=== PATIENT | female | born 1980 | race Caucasian/White ===

== ENCOUNTER 2017-01-18 14:59 | Emergency (ER) | payer MEDICAID ==
--- NOTE | 2017-01-18 15:19 | EDPHY ---
H & P Time Seen by Provider: 01/18/17 15:18 HPI/ROS: CHIEF COMPLAINT: Referred to ED from [facility] for reported hypertension, confusion HISTORY OF PRESENT ILLNESS: The patient reportedly was at [facility] earlier today. She has a history of chronic substance abuse and is on methadone. She reportedly was noted to be hypertensive, endorses symptoms of anxiety and has reported some increasing confusion over the past several days. She denies any suicidal or homicidal ideation. She denies using any illicit substances aside and has been receiving her methadone on a daily basis. The patient is on a number of other medications including Ambien. The patient typically gets her care at [facility]. She does have fairly routine follow up with her primary care provider. REVIEW OF SYSTEMS: A comprehensive 10 point review of systems is otherwise negative aside from elements mentioned in the history of present illness. Source: Patient Exam Limitations: No limitations - Medical/Surgical History PMH: Past medical history: Chronic pain, substance abuse - Family History Significant Family History: No pertinent family hx - Physical Exam Exam: General Appearance: Alert, anxious, no acute distress Eyes: Pupils equal and round no pallor or injection ENT, Mouth: Mucous membranes moist Respiratory: There are no retractions, lungs are clear to auscultation Cardiovascular: Regular rate and rhythm Gastrointestinal: Abdomen is soft and nontender, no masses, bowel sounds normal Neurological: A&O, normal motor function, normal sensory exam, normal cranial nerves Skin: Warm and dry, no rashes Musculoskeletal: Neck is supple nontender Extremities: symmetrical, full range of motion Psychiatric: Patient is oriented X 3, there is no agitation, mildly anxious, denies suicidal/homicidal ideation Constitutional: Initial Vital Signs Temperature (C) 36.8 C 01/18/17 15:43 Heart Rate 63 01/18/17 15:43 Respiratory Rate 16 01/18/17 15:43 Blood Pressure 165/116 H 01/18/17 15:43 O2 Sat (%) 92 01/18/17 15:43 O2 Delivery Mode Room Air Allergies/Adverse Reactions: No Known Allergies Allergy (Verified 01/18/17 15:46) Home Medications: Medication Instructions Recorded Depakote 06/13/09 Levothyroxine 06/13/09 Prozac 06/13/09 Ativan 01/18/17 Dicyclomine 01/18/17 Methadone HCl 01/18/17 Tizanidine HCl 01/18/17 Zolpidem Tartrate 01/18/17 clonIDINE 01/18/17 Medical Decision Making ED Course/Re-evaluation: The patient presents to the ED with symptoms of anxiety. The patient denies any suicidal or homicidal ideation. The patient has reported some mild symptoms of confusion. The patient's vital signs are stable. She is afebrile. She has no evidence of meningeal symptoms. The patient's laboratory studies are unremarkable. The patient did receive 1 mg of IV Ativan for presumed anxiety. She underwent serial examinations in the ED over a 3 hour period. The patient was re-evaluated at 7:00 p.m.. She is feeling much better. She has no acute complaints. Her neurologic exam remains normal and her vital signs are normal as well. The patient would like to be discharged back to the respite facility at [facility]. She does not meet criteria for 72 hour mental health hold. The patient did have mild hypertension upon arrival. At 645pm the patient's blood pressure is 140/83. Differential Diagnosis: Differential diagnosis considered includes hypertensive emergency, metabolic abnormality, anxiety, psychosis, substance abuse - Data Points Laboratory Results: Laboratory Results 01/18/17 15:00 01/18/17 15:00 01/18/17 01/18/17 01/18/17 15:25 15:25 15:00 WBC RBC Hgb Hct MCV MCH MCHC RDW Plt Count MPV Neut % (Auto) Lymph % (Auto) [place] % (Auto) Eos % (Auto) Baso % (Auto) Nucleat RBC Rel Count Absolute Neuts (auto) Absolute Lymphs (auto) Absolute Monos (auto) Absolute Eos (auto) Absolute Basos (auto) Absolute Nucleated RBC Immature Gran % Immature Gran # Sodium Potassium Chloride Carbon Dioxide Anion Gap BUN Creatinine Estimated GFR Glucose Calcium Beta HCG, Qual NEGATIVE Urine Color YELLOW Urine Appearance CLEAR Urine pH 7.0 (5.0-7.5) Ur Specific [place] 1.005 (1.002-1.030) Urine Protein NEGATIVE (NEGATIVE) Urine Ketones NEGATIVE (NEGATIVE) Urine Blood NEGATIVE (NEGATIVE) Urine Nitrate NEGATIVE (NEGATIVE) Urine Bilirubin NEGATIVE (NEGATIVE) Urine Urobilinogen NEGATIVE EU EU (0.2-1.0) Ur Leukocyte Esterase NEGATIVE (NEGATIVE) Urine Glucose NEGATIVE (NEGATIVE) Urine Opiates Screen NEGATIVE (NEGATIVE) Urine Barbiturates NEGATIVE (NEGATIVE) Ur Phencyclidine Scrn NEGATIVE (NEGATIVE) Ur Amphetamine Screen NEGATIVE (NEGATIVE) U Benzodiazepines Scrn NEGATIVE (NEGATIVE) Urine Cocaine Screen NEGATIVE (NEGATIVE) U Marijuana (THC) Screen NON-NEGATIVE H (NEGATIVE) 01/18/17 01/18/17 15:00 15:00 WBC 13.57 10^3/uL H 10^3/uL (3.80-9.50) RBC 5.15 10^6/uL 10^6/uL (4.18-5.33) Hgb 14.3 g/dL g/dL (12.6-16.3) Hct 42.7 % % (38.0-47.0) MCV 82.9 fL fL (81.5-99.8) MCH 27.8 pg L pg (27.9-34.1) MCHC 33.5 g/dL g/dL (32.4-36.7) RDW 14.3 % % (11.5-15.2) Plt Count 327 10^3/uL 10^3/uL (150-400) MPV 10.1 fL fL (8.7-11.7) Neut % (Auto) 78.4 % H % (39.3-74.2) Lymph % (Auto) 16.1 % % (15.0-45.0) [place] % (Auto) 4.8 % % (4.5-13.0) Eos % (Auto) 0.1 % L % (0.6-7.6) Baso % (Auto) 0.2 % L % (0.3-1.7) Nucleat RBC Rel Count 0.0 % % (0.0-0.2) Absolute Neuts (auto) 10.63 10^3/uL H 10^3/uL (1.70-6.50) Absolute Lymphs (auto) 2.19 10^3/uL 10^3/uL (1.00-3.00) Absolute Monos (auto) 0.65 10^3/uL 10^3/uL (0.30-0.80) Absolute Eos (auto) 0.02 10^3/uL L 10^3/uL (0.03-0.40) Absolute Basos (auto) 0.03 10^3/uL 10^3/uL (0.02-0.10) Absolute Nucleated RBC 0.00 10^3/uL 10^3/uL (0-0.01) Immature Gran % 0.4 % % (0.0-1.1) Immature Gran # 0.05 10^3/uL 10^3/uL (0.00-0.10) Sodium 142 mEq/L mEq/L (134-144) Potassium 3.2 mEq/L L mEq/L (3.5-5.2) Chloride 98 mEq/L mEq/L (97-110) Carbon Dioxide 28 mEq/l mEq/l (22-31) Anion Gap 16 mEq/L mEq/L (8-16) BUN 9 mg/dL mg/dL (7-23) Creatinine 0.7 mg/dL mg/dL (0.6-1.0) Estimated GFR > 60 Glucose 84 mg/dL mg/dL (70-100) Calcium 10.4 mg/dL mg/dL (8.5-10.4) Beta HCG, Qual Urine Color Urine Appearance Urine pH Ur Specific [place] Urine Protein Urine Ketones Urine Blood Urine Nitrate Urine Bilirubin Urine Urobilinogen Ur Leukocyte Esterase Urine Glucose Urine Opiates Screen Urine Barbiturates Ur Phencyclidine Scrn Ur Amphetamine Screen U Benzodiazepines Scrn Urine Cocaine Screen U Marijuana (THC) Screen Medications Given: Discontinued Medications Lorazepam (Ativan) 0.5 mg PO EDNOW ONE Stop: 01/18/17 16:15 Last Admin: 01/18/17 16:19 Dose: 0.5 mg Departure - Departure Disposition: Home, Routine, Self-Care Clinical Impression: Hypertension, Anxiety Condition: Good Instructions: Hypertension (ED) Additional Instructions: 1. Please follow up with [facility] for a blood pressure recheck in the next week. 2. Return to the emergency department for any worsening symptoms or other concerns. 3. Please follow up as scheduled with [facility]. Referrals: [facility],. [Clinic] - As per Instructions
[2017-01-18 15:44] LABS: PLATELET COUNT 327 10^3/uL (150-400)
[2017-01-18] MEDS ORDERED: LORazepam 0.5 MG TAB PO ONE (16:14)
[2017-01-18 19:58] VITALS: BP 156/111; PULSE 63; RESP 16; TEMP 98.4; O2SAT 93
== END 2017-01-18 19:58 | disposition home or self-care (01) ==
LOC: EDUNIT#
DX: I10 Essential (primary) hypertension (principal); F41.9 Anxiety disorder, unspecified
CPT/HCPCS: 80305